=== PATIENT | female | born 1965 ===

== ENCOUNTER → 2017-11-01 | Outpatient (CLI) | payer BC | END | disposition home or self-care (01) | LOC: C.LABSPEC 16:16 | PROVIDERS: ATTEND Physician Assistant | DX: R30.0 Dysuria (principal) ==

== ENCOUNTER → 2017-11-04 | Outpatient (CLI) | payer BC | END | disposition home or self-care (01) | LOC: C.LAB1850 12:41 | PROVIDERS: ATTEND Physician Assistant | DX: R30.0 Dysuria (principal) ==

== ENCOUNTER → 2017-11-09 | Outpatient (CLI) | payer BC | END | disposition home or self-care (01) | LOC: C.PATHSPEC 17:14 | PROVIDERS: ATTEND Obstetrics & Gynecology | DX: N90.89 Other specified noninflammatory disorders of vulva and perineum (principal); N90.4 Leukoplakia of vulva ==

== ENCOUNTER → 2017-11-30 | Outpatient (CLI) | payer BC | END | disposition home or self-care (01) | LOC: C.LABSPEC 17:44 | PROVIDERS: ATTEND Dermatology | DX: L98.9 Disorder of the skin and subcutaneous tissue, unspecified (principal); N64.9 Disorder of breast, unspecified ==

== ENCOUNTER → 2017-11-30 | Outpatient (CLI) | payer BC ==
[2017-11-30 16:36] LABS: ALBUMIN 3.8 gm/dl (3.4-5.0); ALT/SGPT 45 U/L (12-78); BLOOD UREA NITROGEN 13 mg/dl (7-18); CALCIUM 8.8 mg/dl (8.5-10.1); CARBON DIOXIDE 29 mmol/L (21-32); GLUCOSE 96 mg/dl (70-99); POTASSIUM 3.7 mmol/L (3.5-5.1); SODIUM 138 mmol/L (136-145)
[2017-11-30 16:43] LABS: ALKALINE PHOSPHATASE 145 U/L (45-117); AST/SGOT 20 U/L (15-37); TOTAL PROTEIN 7.7 gm/dl (6.4-8.2)
[2017-12-03 17:41] LABS: ANA SCREEN TC 249X NEGATIVE (NEGATIVE); ANTI-SS-A <1.0 NEG AI (<1.0 NEG); ANTI-SS-B <1.0 NEG AI (<1.0 NEG); MICROSOMAL AB 1 IU/ML (<9); TESTOSTERONE,TOTAL 15 ng/dL (2-45)
== END | disposition home or self-care (01) ==
LOC: C.LAB1850 10:03
PROVIDERS: ATTEND Dermatology
DX: L90.0 Lichen sclerosus et atrophicus (principal)